=== PATIENT | female | born 1945 | race Caucasian/White ===

== ENCOUNTER 2017-04-27 01:48 | Inpatient (IN) | payer MEDICARE ==
[2017-04-27] MEDS ORDERED: ACETAMINOPHEN 325 MG TABLET. PO ×2 (03:45→12:00)
[2017-04-27] MEDS: IV NORMAL SALINE 1000ML BAG 1,000 ML IV ×2 (03:59→14:00)
[2017-04-27] MEDS: MORPHINE SULFATE 4 MG/ML DISP.SYRIN. IV ×3 (04:02→10:44)
[2017-04-27] MEDS: ONDANSETRON PF 4 MG/2 ML VIAL. IV ×2 (07:07→20:01)
[2017-04-27 07:30] LABS: ADD MAN DIFF? NO
[2017-04-27 07:44] LABS: BASO % 0 % (0-3); EOS # 0.3 x10^3/uL (0.0-0.7); EOS % 3 % (0-3); HEMATOCRIT 32.9 % (36.0-47.0); HEMOGLOBIN 10.7 g/dL (12.0-15.5); LYMPH # 1.4 x10^3/uL (1.0-4.8); LYMPH % 15 % (24-48); MEAN CORPUSCULAR HEMOGLOBIN 27 pg (25-35); MEAN CORPUSCULAR HGB CONC 32 g/dL (31-37); MEAN CORPUSCULAR VOLUME 84 fL (79-100); MONO % 10 % (0-9); NEUT # 6.6 x10^3uL (1.8-7.7); NEUT % 72 % (31-73); PLATELET COUNT 382 x10^3/uL (140-400); RED CELL DISTRIBUTION WIDTH 15.3 % (11.5-14.5); WHITE BLOOD COUNT 9.3 x10^3/uL (4.0-11.0)
[2017-04-27 07:48] LABS: INR 0.9 (0.8-1.1); PROTHROMBIN TIME PATIENT 11.7 SEC (11.7-14.0)
[2017-04-27 07:53] LABS: ANION GAP 11 (6-14); BLOOD UREA NITROGEN 31 mg/dL (7-20); CALCIUM 9.1 mg/dL (8.5-10.1); CARBON DIOXIDE 25 mmol/L (21-32); CHLORIDE 107 mmol/L (98-107); CREATININE 1.3 mg/dL (0.6-1.0); GFR 40.2; GLUCOSE 103 mg/dL (70-99); POTASSIUM 4.2 mmol/L (3.5-5.1); SODIUM 143 mmol/L (136-145)
[2017-04-27] MEDS: LIDOCAINE (700MG/PATCH) PATCH. TP (12:00)
[2017-04-27] MEDS ORDERED: MORPHINE SULFATE 2 MG/ML DISP.SYRIN. IV ×2 (12:00→12:45)
[2017-04-27] MEDS: LISINOPRIL 20 MG TABLET PO ×2 (12:00→20:30)
[2017-04-27] MEDS: FUROSEMIDE 40 MG TABLET. PO (12:00)
[2017-04-27] MEDS: INSULIN ASPART 300 UNITS/3 ML INSULN.PEN SQ ×2 (12:00→18:47)
[2017-04-27] MEDS: FLUoxetine HCL 20 MG CAPSULE PO (12:00)
[2017-04-27] MEDS ORDERED: DEXTROSE 50% 25 GM / 50ML DISP.SYRIN. IV (12:00)
[2017-04-27] MEDS ORDERED: DOCUSATE SODIUM 100 MG CAPSULE. PO (12:00)
[2017-04-27] MEDS: amLODIPine BESYLATE 10 MG TABLET PO (12:00)
[2017-04-27] MEDS: CARVEDILOL 6.25 MG TABLET. PO ×2 (12:00→19:21)
[2017-04-27] MEDS: HYDROcodone/APAP 10/325 1 TAB TABLET PO ×2 (12:13→19:32)
[2017-04-27 12:24] LABS: POC GLUCOSE 86 mg/dL (70-99)
[2017-04-27] MEDS ORDERED: LIDOCAINE 1% PF 2 ML VIAL. ID (12:45)
[2017-04-27] MEDS ORDERED: fentaNYL PF VIAL 100 MCG/2 ML VIAL IV ×2 (12:45)
[2017-04-27] MEDS ORDERED: ONDANSETRON PF 4 MG/2 ML VIAL. IV (12:45)
[2017-04-27] MEDS: IV RINGERS,LACTATED 1000ML 1,000 ML IV (13:03)
[2017-04-27] MEDS: CYCLOBENZAPRINE 10 MG TABLET. PO ×2 (14:00→20:30)
[2017-04-27 14:15] LABS: POC GLUCOSE 91 mg/dL (70-99)
[2017-04-27] MEDS ORDERED: ROCURONIUM 50 MG/5 ML VIAL. (14:37)
[2017-04-27] MEDS ORDERED: PROPOFOL 20 ML IV (14:37)
[2017-04-27] MEDS ORDERED: SEVOFLURANE 31 TO 60 MINUTES. IH (14:37)
[2017-04-27] MEDS ORDERED: LIDOCAINE 1% PF 5 ML VIAL. (14:37)
[2017-04-27] MEDS ORDERED: DEXAMETHASONE SOD PHOS 20 MG/5 ML VIAL. (14:38)
[2017-04-27] MEDS ORDERED: ONDANSETRON PF 4 MG/2 ML VIAL. (14:38)
[2017-04-27] MEDS ORDERED: KETOROLAC 30 MG/ML INJ FOR OR. INJ (14:38)
[2017-04-27] MEDS ORDERED: fentaNYL PF VIAL 100 MCG/2 ML VIAL (15:45)
[2017-04-27] MEDS ORDERED: LABETALOL 20 MG/4 ML DISP.SYRIN. (17:24)
[2017-04-27] MEDS: LABETALOL 20 MG/4 ML DISP.SYRIN. IVP ×2 (17:26→17:53)
[2017-04-27 17:31] LABS: POC GLUCOSE 81 mg/dL (70-99)
[2017-04-27] MEDS: hydrALAZINE 20 MG/ML VIAL. IVP (17:44)
[2017-04-27] MEDS: CALCIUM CARBONATE 500 MG TAB.CHEW PO (20:29)
[2017-04-27] MEDS: ATORVASTATIN CALCIUM 20 MG TABLET PO (20:29)
[2017-04-27] MEDS: PROCHLORPERAZINE 10 MG/2 ML VIAL. IV (20:31)
[2017-04-27 20:52] LABS: POC GLUCOSE 190 mg/dL (70-99)
[2017-04-28] MEDS: IV NORMAL SALINE 1000ML BAG 1,000 ML IV ×3 (00:15→20:00)
[2017-04-28] MEDS: HYDROcodone/APAP 10/325 1 TAB TABLET PO ×3 (02:41→15:28)
[2017-04-28] MEDS: CALCIUM CARBONATE 500 MG TAB.CHEW PO (02:41)
[2017-04-28 05:43] LABS: BASO % 0 % (0-3); EOS % 0 % (0-3); HEMATOCRIT 35.3 % (36.0-47.0); HEMOGLOBIN 11.4 g/dL (12.0-15.5); LYMPH # 0.5 x10^3/uL (1.0-4.8); LYMPH % 6 % (24-48); MEAN CORPUSCULAR HEMOGLOBIN 28 pg (25-35); MEAN CORPUSCULAR HGB CONC 32 g/dL (31-37); MEAN CORPUSCULAR VOLUME 85 fL (79-100); MONO # 0.1 x10^3/uL (0.0-1.1); MONO % 2 % (0-9); NEUT # 8.6 x10^3uL (1.8-7.7); NEUT % 92 % (31-73); PLATELET COUNT 413 x10^3/uL (140-400); RED BLOOD COUNT 4.15 x10^6/uL (3.50-5.40); RED CELL DISTRIBUTION WIDTH 15.2 % (11.5-14.5); WHITE BLOOD COUNT 9.3 x10^3/uL (4.0-11.0)
[2017-04-28 05:46] LABS: ADD MAN DIFF? YES
[2017-04-28 06:16] LABS: ANION GAP 9 (6-14); BLOOD UREA NITROGEN 29 mg/dL (7-20); CALCIUM 9.1 mg/dL (8.5-10.1); CARBON DIOXIDE 26 mmol/L (21-32); CHLORIDE 102 mmol/L (98-107); CREATININE 1.5 mg/dL (0.6-1.0); GLUCOSE 222 mg/dL (70-99); POTASSIUM 4.5 mmol/L (3.5-5.1); SODIUM 137 mmol/L (136-145)
[2017-04-28] MEDS: INSULIN ASPART 300 UNITS/3 ML INSULN.PEN SQ ×3 (08:00→17:00)
[2017-04-28] MEDS: FUROSEMIDE 40 MG TABLET. PO (09:00)
[2017-04-28] MEDS: LIDOCAINE (700MG/PATCH) PATCH. TP (09:00)
[2017-04-28 09:24] LABS: POC GLUCOSE 232 mg/dL (70-99)
[2017-04-28] MEDS: LISINOPRIL 20 MG TABLET PO ×2 (09:42→21:31)
[2017-04-28] MEDS: amLODIPine BESYLATE 10 MG TABLET PO (09:43)
[2017-04-28] MEDS: CARVEDILOL 6.25 MG TABLET. PO ×2 (09:44→15:21)
[2017-04-28] MEDS: FLUoxetine HCL 20 MG CAPSULE PO (09:44)
[2017-04-28] MEDS: CYCLOBENZAPRINE 10 MG TABLET. PO ×3 (09:45→21:31)
[2017-04-28 10:22] LABS: % BASOS 1 % (0-3); % LYMPHS 5 % (24-48); % MONOS 1 % (0-10); % SEGS 93 % (35-66); PLT ESTIMATE INCREASED (ADEQUATE)
[2017-04-28 12:06] LABS: POC GLUCOSE 210 mg/dL (70-99)
[2017-04-28 17:01] LABS: POC GLUCOSE 134 mg/dL (70-99)
[2017-04-28] MEDS: metFORMIN 500 MG TABLET PO (19:26)
[2017-04-28] MEDS: ATORVASTATIN CALCIUM 20 MG TABLET PO (21:31)
[2017-04-29] MEDS: HYDROcodone/APAP 10/325 1 TAB TABLET PO ×3 (05:48→20:47)
[2017-04-29 07:54] LABS: POC GLUCOSE 105 mg/dL (70-99)
[2017-04-29] MEDS: INSULIN ASPART 300 UNITS/3 ML INSULN.PEN SQ ×4 (08:00→22:07)
[2017-04-29] MEDS: LIDOCAINE (700MG/PATCH) PATCH. TP (09:00)
[2017-04-29] MEDS: metFORMIN 500 MG TABLET PO ×2 (09:14→17:52)
[2017-04-29] MEDS: FLUoxetine HCL 20 MG CAPSULE PO (09:15)
[2017-04-29] MEDS: LISINOPRIL 20 MG TABLET PO ×2 (09:16→20:47)
[2017-04-29] MEDS: FUROSEMIDE 40 MG TABLET. PO (09:16)
[2017-04-29] MEDS: CARVEDILOL 6.25 MG TABLET. PO ×2 (09:17→17:53)
[2017-04-29] MEDS: CYCLOBENZAPRINE 10 MG TABLET. PO ×3 (09:17→20:46)
[2017-04-29] MEDS: amLODIPine BESYLATE 10 MG TABLET PO (09:17)
[2017-04-29] MEDS: traMADol 50 MG TABLET PO ×2 (09:22→17:55)
[2017-04-29 11:54] LABS: POC GLUCOSE 121 mg/dL (70-99)
[2017-04-29 16:10] LABS: ANION GAP 9 (6-14); BLOOD UREA NITROGEN 34 mg/dL (7-20); CALCIUM 8.5 mg/dL (8.5-10.1); CARBON DIOXIDE 28 mmol/L (21-32); CHLORIDE 105 mmol/L (98-107); CREATININE 1.6 mg/dL (0.6-1.0); GFR 31.6; GLUCOSE 171 mg/dL (70-99); POTASSIUM 4.3 mmol/L (3.5-5.1); SODIUM 142 mmol/L (136-145)
[2017-04-29] MEDS ORDERED: hydrALAZINE 20 MG/ML VIAL. IVP (16:15)
[2017-04-29] MEDS: cloNIDine TTS-2 1 PATCH PATCH TD ×2 (17:00→21:37)
[2017-04-29 17:14] LABS: POC GLUCOSE 148 mg/dL (70-99)
[2017-04-29] MEDS ORDERED: MORPHINE SULFATE 4 MG/ML DISP.SYRIN. IV (19:15)
[2017-04-29] MEDS: ATORVASTATIN CALCIUM 20 MG TABLET PO (20:46)
[2017-04-30 00:19] LABS: POC GLUCOSE 215 mg/dL (70-99)
[2017-04-30 05:07] LABS: ADD MAN DIFF? NO
[2017-04-30 05:21] LABS: BASO # 0.1 x10^3/uL (0.0-0.2); BASO % 1 % (0-3); EOS # 0.4 x10^3/uL (0.0-0.7); EOS % 4 % (0-3); HEMATOCRIT 28.7 % (36.0-47.0); HEMOGLOBIN 9.5 g/dL (12.0-15.5); LYMPH # 1.2 x10^3/uL (1.0-4.8); LYMPH % 12 % (24-48); MEAN CORPUSCULAR HEMOGLOBIN 28 pg (25-35); MEAN CORPUSCULAR HGB CONC 33 g/dL (31-37); MEAN CORPUSCULAR VOLUME 86 fL (79-100); MONO # 1.3 x10^3/uL (0.0-1.1); MONO % 13 % (0-9); NEUT % 71 % (31-73); PLATELET COUNT 289 x10^3/uL (140-400); RED BLOOD COUNT 3.36 x10^6/uL (3.50-5.40); RED CELL DISTRIBUTION WIDTH 15.5 % (11.5-14.5); WHITE BLOOD COUNT 9.9 x10^3/uL (4.0-11.0)
[2017-04-30 05:54] LABS: ALBUMIN 2.1 g/dL (3.4-5.0); ALBUMIN/GLOBULIN RATIO 0.6 (1.0-1.7); ALK PHOS 62 U/L (46-116); ALT (SGPT) 14 U/L (14-59); ANION GAP 10 (6-14); AST (SGOT) 12 U/L (15-37); BLOOD UREA NITROGEN 39 mg/dL (7-20); BUN/CREATININE RATIO 23 (6-20); CARBON DIOXIDE 26 mmol/L (21-32); CHLORIDE 107 mmol/L (98-107); CREATININE 1.7 mg/dL (0.6-1.0); GFR 29.5; GLUCOSE 199 mg/dL (70-99); POTASSIUM 4.2 mmol/L (3.5-5.1); SODIUM 143 mmol/L (136-145); TOTAL BILIRUBIN 0.1 mg/dL (0.2-1.0); TOTAL PROTEIN 5.4 g/dL (6.4-8.2)
[2017-04-30] MEDS: INSULIN ASPART 300 UNITS/3 ML INSULN.PEN SQ ×3 (08:00→17:00)
[2017-04-30 08:08] LABS: POC GLUCOSE 142 mg/dL (70-99)
[2017-04-30] MEDS: FLUoxetine HCL 20 MG CAPSULE PO (08:41)
[2017-04-30] MEDS: FUROSEMIDE 40 MG TABLET. PO (08:41)
[2017-04-30] MEDS: CYCLOBENZAPRINE 10 MG TABLET. PO ×3 (08:41→21:34)
[2017-04-30] MEDS: metFORMIN 500 MG TABLET PO ×2 (08:42→18:33)
[2017-04-30] MEDS: HYDROcodone/APAP 10/325 1 TAB TABLET PO ×2 (08:42→21:35)
[2017-04-30] MEDS: LIDOCAINE (700MG/PATCH) PATCH. TP ×2 (08:45→22:41)
[2017-04-30] MEDS: CARVEDILOL 6.25 MG TABLET. PO ×2 (08:47→18:33)
[2017-04-30] MEDS: amLODIPine BESYLATE 10 MG TABLET PO (08:47)
[2017-04-30] MEDS: LISINOPRIL 20 MG TABLET PO ×2 (08:48→21:34)
[2017-04-30] MEDS: OXYBUTYNIN CHLORIDE 5 MG TABLET PO ×3 (09:58→21:34)
[2017-04-30 11:58] LABS: POC GLUCOSE 179 mg/dL (70-99)
[2017-04-30] MEDS ORDERED: MORPHINE SULFATE 4 MG/ML DISP.SYRIN. IV (12:33)
[2017-04-30 16:57] LABS: POC GLUCOSE 114 mg/dL (70-99)
[2017-04-30 20:55] LABS: POC GLUCOSE 158 mg/dL (70-99)
[2017-04-30] MEDS: ATORVASTATIN CALCIUM 20 MG TABLET PO (21:34)
[2017-05-01] MEDS: HYDROcodone/APAP 10/325 1 TAB TABLET PO (05:12)
[2017-05-01 07:49] LABS: POC GLUCOSE 120 mg/dL (70-99)
[2017-05-01] MEDS: LIDOCAINE (700MG/PATCH) PATCH. TP (07:50)
[2017-05-01] MEDS: OXYBUTYNIN CHLORIDE 5 MG TABLET PO ×2 (07:50→14:01)
[2017-05-01] MEDS: metFORMIN 500 MG TABLET PO (07:50)
[2017-05-01] MEDS: FLUoxetine HCL 20 MG CAPSULE PO (07:50)
[2017-05-01] MEDS: CYCLOBENZAPRINE 10 MG TABLET. PO ×2 (07:51→14:01)
[2017-05-01] MEDS: FUROSEMIDE 40 MG TABLET. PO (07:51)
[2017-05-01] MEDS: amLODIPine BESYLATE 10 MG TABLET PO (07:54)
[2017-05-01] MEDS: CARVEDILOL 6.25 MG TABLET. PO (07:54)
[2017-05-01] MEDS: LISINOPRIL 20 MG TABLET PO (07:54)
[2017-05-01] MEDS: INSULIN ASPART 300 UNITS/3 ML INSULN.PEN SQ ×2 (07:54→11:27)
[2017-05-01 11:17] LABS: POC GLUCOSE 165 mg/dL (70-99)
[2017-05-06 05:21] LABS: ALDOSTERONE <1.0 ng/dL (0.0-30.0)
== END 2017-05-01 15:46 | disposition home or self-care (01) | DRG 668 ==
LOC: 4 NORTH 01:48
PROC: 0TJB8ZZ Inspection of Bladder, Via Natural or Artificial Opening Endoscopic (ICD-10-PCS; principal; 2017-04-27 13:45)
PROC: 0TC68ZZ Extirpation of Matter from Right Ureter, Via Natural or Artificial Opening Endoscopic (ICD-10-PCS; 2017-04-27 13:45)
PROC: 0TCB8ZZ Extirpation of Matter from Bladder, Via Natural or Artificial Opening Endoscopic (ICD-10-PCS; 2017-04-27 13:45)
DX: N17.0 Acute kidney failure with tubular necrosis (principal); E43 Unspecified severe protein-calorie malnutrition; R31.0 Gross hematuria; E11.22 Type 2 diabetes mellitus with diabetic chronic kidney disease; I12.9 Hypertensive chronic kidney disease with stage 1 through stage 4 chronic kidney disease, or unspecified chronic kidney disease; K43.9 Ventral hernia without obstruction or gangrene; M54.40 Lumbago with sciatica, unspecified side; N18.3 Chronic kidney disease, stage 3 (moderate); N28.89 Other specified disorders of kidney and ureter; N31.2 Flaccid neuropathic bladder, not elsewhere classified; N32.89 Other specified disorders of bladder; Z77.22 Contact with and (suspected) exposure to environmental tobacco smoke (acute) (chronic); Z79.4 Long term (current) use of insulin; Z98.84 Bariatric surgery status; Z68.37 Body mass index [BMI] 37.0-37.9, adult
CPT/HCPCS: 36415; 76770; 80048; 80053; 82962; 85007; 85025; 85610; 88112; J0360; J0690; J0780; J1100; J1815; J1885; J2270; J2405; J2704; J3010; J3490; J7030; J7120

== ENCOUNTER → 2017-05-18 | Outpatient (CLI) | payer MEDICARE ==
[2017-05-18 11:46] LABS: ANION GAP 7 (6-14); BLOOD UREA NITROGEN 23 mg/dL (7-20); CARBON DIOXIDE 27 mmol/L (21-32); CHLORIDE 108 mmol/L (98-107); CREATININE 1.4 mg/dL (0.6-1.0); GFR 36.9; GLUCOSE 156 mg/dL (70-99); POTASSIUM 4.4 mmol/L (3.5-5.1); SODIUM 142 mmol/L (136-145)
== END | disposition home or self-care (01) ==
LOC: LAB 10:50
DX: R93.421 Abnormal radiologic findings on diagnostic imaging of right kidney (principal)
CPT/HCPCS: 36415; 80048